=== PATIENT | female | born 1960 | race Caucasian/White ===

== ENCOUNTER 2016-04-17 10:46 | Emergency (ER) | payer BC ==
[~2016-04-17] VITALS: Wt 77.1 kg
[~2016-04-17 10:46] MED LIST: CALCIUM 600600 M2 PO; DECADRON4 MG PO; FOSAMAX70 M1 PO; NATURE'S BLEND F1 MG PO; SYNTHROID,LEV125 MCG PO; VITAMIN B11000 MCG/M IM; VITAMIN D-32000 UNI1 PO; XARELTO STARTER20 MG PO
[2016-04-17] MEDS ORDERED: LISINOPRIL10 M1 PO (10:57)
[2016-04-17 11:27] LABS: BASO # 0.1 10*3/uL (0.0-0.1); BASO % 0.8 % (0.0-1.0); EOS % 0.5 % (1.0-4.0); HEMATOCRIT 39.5 % (37.0-47.0); HEMOGLOBIN 12.7 g/dl (12.0-16.0); LYMPH # 1.4 10*3/uL (1.3-4.4); LYMPH % 21.1 % (27.0-41.0); MEAN CELL VOLUME 99.5 fl (81.0-99.0); MEAN CORPUSCULAR HGB CONC 32.2 g/dl (33.0-37.0); MEAN PLATELET VOLUME 11.4 fl (9.6-12.3); MONO # 0.8 10*3/uL (0.1-1.0); MONO % 12.2 % (3.0-9.0); NEUT # 4.2 10*3/uL (2.3-7.9); NEUT % 64.9 % (47.0-73.0); PLATELET COUNT AUTOMATED 199 10*3/uL (130-400); RED BLOOD COUNT 3.97 10*6/uL (4.10-5.10); RED CELL DISTRI WIDTH 13.7 % (0-14.5); WHITE BLOOD COUNT 6.5 10*3/uL (4.8-10.8)
[2016-04-17 11:51] LABS: ALBUMIN 3.7 gm/dl (3.1-4.5); BILIRUBIN, TOTAL 0.6 mg/dl (0.2-1.0); POTASSIUM 4.2 mmol/L (3.5-5.1); TOTAL PROTEIN 7.2 gm/dL (6.4-8.2)
[2016-04-17] MEDS ORDERED: ZOFRAN4 MG PO (12:43)
[2016-05-26] MEDS ORDERED: PEPCID20 MG PO (17:06)
[2016-05-26] MEDS ORDERED: Zofran4 MG PO (17:07)
[2016-06-02] MEDS ORDERED: PRILOSEC20 M1 PO (20:36)
[2016-06-02] MEDS ORDERED: PERCOCET 325 MG1 TA2 PO (20:36)
[2016-06-02] MEDS ORDERED: VITAMIN D-32000 UNIT PO (23:23)
[2016-06-02] MEDS ORDERED: CALCIUM600 M2 PO (23:24)
== END 2016-04-17 12:48 | disposition home or self-care (01) ==
LOC: ED 10:46
PROVIDERS: Emergency Medicine
DX: K80.20 Calculus of gallbladder without cholecystitis without obstruction (principal); E03.9 Hypothyroidism, unspecified; Z79.899 Other long term (current) drug therapy; Z85.118 Personal history of other malignant neoplasm of bronchus and lung